=== PATIENT | male | born 1995 | race Caucasian/White ===

== ENCOUNTER 2017-02-19 12:06 | Emergency (ER) | payer OTHER ==
[~2017-02-19] VITALS: Ht 182.9 cm; Wt 120.2 kg
[~2017-02-19 12:06] MED LIST: ADDERALL; CLONIDINE; NEURONTIN; TYLENOL WITH C1 EACH PO
[2017-02-19 12:53] LABS: BASOPHIL COUNT 0.1 K/uL (0-0.1); EOSINOPHIL COUNT 0.2 K/uL (0-0.3); HEMATOCRIT 43.3 % (38.0-50.0); IMMATURE GRANULOCYTE (%) 0.5 % (0.0-0.7); LYMPHOCYTE COUNT 1.5 K/uL (1.0-2.8); MCH 28.7 PG (29.0-34.0); MCHC 33.7 G/DL (30.0-36.0); MCV 85.1 FL (86-99); MONOCYTE (%) 9.6 % (3-12); MONOCYTE COUNT 0.8 K/uL (0-0.8); NEUTROPHIL (%) 69.7 % (45-76); PLATELET COUNT 263 K/uL (156-360); RBC DIS.WIDTH-CV 13.3 % (11.8-14.6); RBC DIS.WIDTH-SD 41.5 % (39-53); RED BLOOD COUNT 5.09 M/uL (4.00-5.50); WHITE BLOOD COUNT 8.6 K/uL (4.1-10.2)
[2017-02-19 13:04] LABS: CHLORIDE 109 mEq/L (99-109); POTASSIUM 3.8 mEq/L (3.7-5.4); SODIUM 143 mEq/L (136-147)
[2017-02-19 13:06] LABS: GLUCOSE 102 mg/dL (70-99)
[2017-02-19 13:07] LABS: ANION GAP 11 MEQ/L (2-14)
[2017-02-19 13:09] LABS: SERUM ETHYL ALCOHOL < 10 mg/dL
[2017-02-19 13:10] LABS: GFR ESTIMATE (CALCULATED) > 59 mL/min/
[2017-02-19 13:11] LABS: UREA NITROGEN (BUN) 15 mg/dL (9-23)
[2017-02-19 15:01] VITALS: BP 138/80
== END 2017-02-19 15:27 | disposition home or self-care (01) ==
LOC: EME 12:06
PROVIDERS: Emergency Medicine
DX: F41.9 Anxiety disorder, unspecified (principal); F33.2 Major depressive disorder, recurrent severe without psychotic features; S50.812A Abrasion of left forearm, initial encounter; S50.811A Abrasion of right forearm, initial encounter; X78.9XXA Intentional self-harm by unspecified sharp object, initial encounter; F84.0 Autistic disorder; F90.0 Attention-deficit hyperactivity disorder, predominantly inattentive type; F31.9 Bipolar disorder, unspecified
CPT/HCPCS: 80048; 81003; 85025; 90837; 99281; 99284; G0480